=== PATIENT | female | born 1970 | race African-American/Black ===

== ENCOUNTER 2016-08-12 14:01 | Emergency (ER) | payer OTHER ==
[2016-08-12] MEDS ORDERED: KETOROLAC 60 MG/2 ML VIAL IM ONE (15:25)
[2016-08-12] MEDS ORDERED: ORPHENADRINE 60 MG/2 ML AMP ONE (15:25)
== END 2016-08-12 15:59 | disposition home or self-care (01) ==
LOC: ER 14:01
DX: M54.2 Cervicalgia (principal)